=== PATIENT | female | born 1990 | race American Indian/Alaskan Native ===

== ENCOUNTER 2017-05-11 16:18 | Emergency (ER) | payer MEDICAID, OTHER ==
[2017-05-11 16:24] VITALS: BMI 24.0
[2017-05-11] MEDS ORDERED: Sodium Chloride 0.9% 1,000 ML IV STA (16:39)
[2017-05-11 16:43] VITALS: TEMP 98.5
--- NOTE | 2017-05-11 17:22 | ED PDOC ---
Arrival/HPI - General Chief Complaint: Abnormal Skin Integrity Time Seen by Provider: 05/11/17 16:31 Historian: Patient - History of Present Illness Narrative History of Present Illness (Text): 05/11/17 17:15 27yo female with PMHx of lupus biba for complaint of generalized bodyache since this morning. Notes history of recent cold symptoms symptoms. States the sore throat resolved, but still have mild cough. Reports history of similar bodyache with [id number] Lupus flare up. She did not take any medication for the pain. She denies fever, chills, abdominal pain, nausea, vomiting, diarrhea, chest pain, SOB, urinary symptoms. Also report a rash to her left sided neck. States she saw it when she woke up this morning and is spreading more. She denies nuchal ridgity, neck pain, any other complaint. Past Medical History - Provider Review Nursing Documentation Reviewed: Yes - Past History Past History: No Previous - Infectious Disease Hx of Infectious Diseases: None - Tetanus Immunization Tetanus Immunization: Unknown - Past Medical History Past Medical History: No Previous - Cardiac Hx Cardiac Disorders: No - Pulmonary Hx Respiratory Disorders: No - Neurological Hx Neurological Disorder: No - HEENT Hx HEENT Disorder: No - Renal Hx Renal Disorder: No - Endocrine/Metabolic Hx Endocrine Disorders: No - Hematological/Oncological Hx Blood Disorders: No - Integumentary Hx Dermatological Disorder: No - Musculoskeletal/Rheumatological Hx Musculoskeletal Disorders: No - Gastrointestinal Hx Gastrointestinal Disorders: Yes Hx Nausea: Yes Hx Vomiting: Yes Other/Comment: notes from previous triage: pt has had ongoing testing for abdominal problems. hysteroscopy/laparoscopy - Genitourinary/Gynecological Hx Genitourinary Disorders: No - Psychiatric Hx Psychophysiologic Disorder: No Hx Substance Use: No - Past Surgical History Past Surgical History: No Previous - Surgical History Other/Comment: Liver Resection. fibroids - Anesthesia Hx Anesthesia: Yes Hx Anesthesia Reactions: No Hx Malignant Hyperthermia: No - Suicidal Assessment Feels Threatened In Home Enviroment: No Family/Social History - Physician Review Nursing Documentation Reviewed: Yes Family/Social History: Unknown Family HX Smoking Status: Heavy Smoker > 10 Cigarettes Daily Hx Alcohol Use: Yes Frequency of alcohol use: Socially Hx Substance Use: No Hx Substance Use Treatment: No Allergies/Home Meds Allergies/Adverse Reactions: Allergies No Known Allergies Allergy (Verified 02/29/16 15:27) Home Medications: Home Meds Medication Instructions Recorded Confirmed Hydroxychloroquine Sulfate 200 mg PO DAILY 05/11/17 05/11/17 [Plaquenil] Prednisone [Deltasone] 40 mg PO DAILY 05/11/17 05/11/17 Review of Systems - Physician Review All systems were reviewed & negative as marked: Yes - Review of Systems Constitutional: Normal Eyes: Normal ENT: Normal Respiratory: Normal Cardiovascular: Normal Gastrointestinal: Normal Genitourinary Female: Normal Musculoskeletal: Myalgias Skin: Rash Neurological: Normal Endocrine: Normal Hemo/Lymphatic: Normal Psychiatric: Normal Physical Exam Vital Signs Reviewed: Yes Vital Signs Temp Pulse Resp BP Pulse Ox 05/11/17 19:23 72 18 100/55 L 99 05/11/17 16:18 98.5 F 92 H 16 131/82 100 Temperature: Afebrile Blood Pressure: Normal Pulse: Regular Respiratory Rate: Normal Appearance: Positive for: Well-Appearing, Non-Toxic, Comfortable Pain Distress: None Mental Status: Positive for: Alert and Oriented X 3 - Systems Exam Head: Present: Atraumatic, Normocephalic Pupils: Present: PERRL Extroacular Muscles: Present: EOMI Conjunctiva: Present: Normal Mouth: Present: Moist Mucous Membranes Neck: Present: Normal Range of Motion Respiratory/Chest: Present: Clear to Auscultation, Good Air Exchange. No: Respiratory Distress, Accessory Muscle Use Cardiovascular: Present: Regular Rate and Rhythm, Normal S1, S2. No: Murmurs Abdomen: Present: Normal Bowel Sounds. No: Tenderness, Distention, Peritoneal Signs Back: Present: Normal Inspection Upper Extremity: Present: Normal Inspection. No: Cyanosis, Edema Lower Extremity: Present: Normal Inspection. No: Edema Neurological: Present: GCS=15, CN II-XII Intact, Speech Normal Skin: Present: Warm, Dry, Rashes (Raised erytehamous patch noted on left sided shoulder/neck), Normal Color Psychiatric: Present: Alert, Oriented x 3, Normal Insight, Normal Concentration Medical Decision Making ED Course and Treatment: 05/11/17 19:46 PT in ED for states history. On revaluation she notes she feels much better. ESR of 25 was noted. She is on prednisone and plaquneil at home. she have a curb setter helper and a PMD and was advised to f/u. - Lab Interpretations Lab Results: 05/11/17 17:00 05/11/17 17:00 Lab Results 05/11/17 17:30: Grp A Beta Strep Ag Negative 05/11/17 17:30: Influenza Typ A,B (EIA) Negative for flu a/b 05/11/17 17:00: Sodium 145, Potassium 3.7, Chloride 105, Carbon Dioxide 29, Anion Gap 15, BUN 12, Creatinine 0.8, Est GFR ( Amer) > 60, Est GFR (Non- Af Amer) > 60, Random Glucose 94, Calcium 10.1, Total Bilirubin 0.7, AST 41 H, ALT 30, Alkaline Phosphatase 82, Total Protein 8.7 H, Albumin 4.9 H, Globulin 3.9, Albumin/Globulin Ratio 1.3 05/11/17 17:00: WBC 5.2, RBC 4.93, Hgb 14.7, Hct 45.5, MCV 92.3, MCH 29.8, MCHC 32.3, RDW 12.9, Plt Count 301, MPV 9.2, Gran % 43.7 L, Lymph % (Auto) 46.4 H, [place] % (Auto) 7.8 H, Eos % (Auto) 1.7, Baso % (Auto) 0.4, Gran # 2.29, Lymph # 2.4, [place] # 0.4, Eos # 0.1, Baso # 0.02, ESR 25 H 05/11/17 16:37: Urine Color Yellow, Urine Appearance Sl cloudy, Urine pH 6.5, Ur Specific [place] 1.020, Urine Protein 30 H, Urine Glucose (UA) Negative, Urine Ketones 15 H, Urine Blood Small H, Urine Nitrate Negative, Urine Bilirubin Moderate H, Urine Urobilinogen 1.0 H, Ur Leukocyte Esterase Trace H, Urine RBC 1 - 3, Urine WBC 2 - 5, Ur Epithelial Cells Many, Urine Bacteria Few - RAD Interpretation Radiology Orders: 05/11/17 18:30 CHEST PORTABLE [RAD] Stat - Medication Orders Current Medication Orders: Discontinued Medications Dexamethasone (Decadron Inj) 10 mg IVP STAT STA Stop: 05/11/17 17:18 Last Admin: 05/11/17 17:05 Dose: 10 mg IVP Administration Document 05/11/17 17:05 EQ (Rec: 05/11/17 17:28 EQ [id number]) Charges for Administration # of IVP Administrations 1 Sodium Chloride (Sodium Chloride 0.9%) 1,000 mls @ 999 mls/hr IV .Q1H1M STA Stop: 05/11/17 17:39 Last Admin: 05/11/17 17:05 Dose: 999 mls/hr eMAR Start Stop Document 05/11/17 17:05 EQ (Rec: 05/11/17 17:28 EQ [id number]) Intravenous Solution Start Date 05/11/17 Start Time 17:05 Ketorolac Tromethamine (Toradol) 30 mg IVP STAT STA Stop: 05/11/17 16:39 Last Admin: 05/11/17 17:05 Dose: 30 mg MAR Pain Assessment Document 05/11/17 17:05 EQ (Rec: 05/11/17 17:28 EQ [id number]) Pain Reassessment Is this a pain reassessment? No Sleep Is patient sleeping during reassessment? No Presence of Pain Presence of Pain Yes Pain Scale Used Pain Scale Used Numeric IVP Administration Document 05/11/17 17:05 EQ (Rec: 05/11/17 17:28 EQ [id number]) Charges for Administration # of IVP Administrations 1 Morphine Sulfate (Morphine) 2 mg IVP STAT STA Stop: 05/11/17 18:31 Last Admin: 05/11/17 18:46 Dose: 2 mg MAR Pain Assessment Document 05/11/17 18:46 EQ (Rec: 05/11/17 18:46 EQ [id number]) Pain Reassessment Is this a pain reassessment? No Sleep Is patient sleeping during reassessment? No Presence of Pain Presence of Pain Yes Pain Scale Used Pain Scale Used Numeric IVP Administration Document 05/11/17 18:46 EQ (Rec: 05/11/17 18:46 EQ [id number]) Charges for Administration # of IVP Administrations 1 Disposition/Present on Arrival - Present on Arrival Any Indicators Present on Arrival: No History of DVT/PE: No History of Uncontrolled Diabetes: No Urinary Catheter: No History of Decub. Ulcer: No History Surgical Site Infection Following: None - Disposition Have Diagnosis and Disposition been Completed?: Yes Diagnosis: Myalgia Disposition: HOME/ ROUTINE Disposition Time: 19:30 Patient Plan: Discharge Condition: STABLE Discharge Instructions (ExitCare): Musculoskeletal Pain (ED) Additional Instructions: Follow up with your Doctor Return to ED for any new or worsening symptoms Prescriptions: Famotidine [Pepcid] 20 mg PO DAILY #10 tab Referrals: Chema Jean MD [Primary Care Provider] - Follow up with primary Forms: [employer] (Hungarian), WORK NOTE
[2017-05-11 17:24] LABS: PH,URINE 6.5 (4.7-8.0); URINE BILIRUBIN MODERATE (NEGATIVE); URINE BLOOD SMALL (NEGATIVE); URINE GLUCOSE (UA) NEGATIVE (NEGATIVE); URINE LEUKOCYTE ESTERASE TRACE Leu/uL (NEGATIVE); URINE NITRATE NEGATIVE (NEGATIVE); URINE PROTEIN 30 mg/dL (<30 mg/dL)
[2017-05-11 17:25] LABS: URINE APPEARANCE SL CLOUDY (CLEAR); URINE COLOR YELLOW (YELLOW)
[2017-05-11 17:27] LABS: BASO # 0.02 K/mm3 (0.0-2.0); BASO % 0.4 % (0.0-3.0); EOS # 0.1 (0.0-0.7); EOS % 1.7 % (1.5-5.0); GRAN # 2.29 (1.4-6.5); GRAN % 43.7 % (50.0-68.0); HEMOGLOBIN 14.7 g/dL (12.0-16.0); LYMPH # 2.4 (1.2-3.4); LYMPH % 46.4 % (22.0-35.0); MEAN CELL VOLUME 92.3 fl (80.0-105.0); MEAN CORPUSCULAR HEMOGLOBIN 29.8 pg (25.0-35.0); MEAN CORPUSCULAR HGB CONC 32.3 g/dl (31.0-37.0); MEAN PLATELET VOLUME 9.2 fl (7.0-11.0); MONO # 0.4 (0.1-0.6); MONO % 7.8 % (1.0-6.0); RBC 4.93 10^6/uL (3.5-6.1); RED CELL DISTRIBUTION WIDTH 12.9 % (11.5-14.5); WHITE BLOOD COUNT 5.2 10^3/ul (4.5-11.0)
[2017-05-11 17:29] LABS: URINE BACTERIA FEW (NEG); URINE EPITHELIAL CELLS MANY /hpf (0-5)
[2017-05-11 17:33] LABS: ALBUMIN 4.9 g/dL (3.0-4.8); ALT/SGPT 30 U/L (7-56); AST/SGOT 41 U/L (14-36); BLOOD UREA NITROGEN 12 mg/dL (7-21); CALCIUM 10.1 mg/dL (8.4-10.5); GFR AFRICAN-AMERICAN > 60; GFR NON-AFRICAN AMERICAN > 60
[2017-05-11 17:38] LABS: ALB/GLOB RATIO 1.3 (1.1-1.8)
[2017-05-11] MEDS ORDERED: Morphine 2 mg/ml ISec IVP STA (18:30)
[2017-05-11 19:24] VITALS: BP 100/55; PULSE 72; RESP 18; O2SAT 99
--- NOTE | 2017-05-12 08:43 | RAD ---
HISTORY: cough COMPARISON: Comparison is made with 04/09/2023 FINDINGS: LUNGS: No active pulmonary disease. PLEURA: No significant pleural effusion identified, no pneumothorax apparent. CARDIOVASCULAR: Normal. OSSEOUS STRUCTURES: No significant abnormalities. VISUALIZED UPPER ABDOMEN: Normal. OTHER FINDINGS: None. IMPRESSION: No active disease.
== END 2017-05-11 19:44 | disposition home or self-care (01) ==
LOC: ED 16:18
DX: M79.1 Myalgia (principal)
CPT/HCPCS: 71045; 80053; 81001; 85025; 85651; 87070; 87086; 87430; 87804; 96374; 96375; 99283; J1100; J1885; J2270; J7040

== ENCOUNTER 2018-02-10 20:18 | Emergency (ER) | payer SELFPAY ==
[2018-02-10 20:20] VITALS: BMI 24.0
--- NOTE | 2018-02-10 20:58 | ED PDOC ---
Arrival/HPI <Gilbert Betancourt - Last Filed: 02/11/18 03:42> - General Historian: Patient - History of Present Illness Narrative History of Present Illness (Text): 02/10/18 20:57 Pt is a 28 yo F with pmhx of Lupus who presents for R sided abdominal pain. She states that she was resting when all of a sudden she noticed R sided abdominal pain that was a 10/10 and non-radiating. She states that she is familiar with this pain as it occurs when she has her periods but it has been a while since she last had an episode this acute. She denies being on her period currently but states that she should be getting it soon. She states that along with the pain she also had an episode of vomiting. She said she tried to take motrin but threw it up and then came to the ED. She denies to fevers, chills, sob, cough, chest pain, palpitations, dysuria or hematuria. In addition to the abd pain she also admits to continued nausea, vomiting, and constipation. She also denies being sexually active in the past 5 months and states that she has been having regular periods since her last sexual encounter with no dysuria or discharge. Pmhx: Lupus Pshx: Denies Meds: Hydroxychloroquine All: NKDA Social: 1/2ppd, social etoh no recent use, denies illicit drug use Fam: Dad- Lung ca Time/Duration: 1-3 hours Symptom Onset: Sudden Symptom Course: Improving Severity Level: 10 <Donny Mejia - Last Filed: 02/11/18 03:48> - General Chief Complaint: Abdominal Pain Time Seen by Provider: 02/10/18 20:21 Past Medical History - Provider Review Nursing Documentation Reviewed: Yes - Past History Past History: No Previous - Infectious Disease Hx of Infectious Diseases: None - Tetanus Immunization Tetanus Immunization: Unknown - Past Medical History Past Medical History: No Previous - Cardiac Hx Cardiac Disorders: No - Pulmonary Hx Respiratory Disorders: No - Neurological Hx Neurological Disorder: No - HEENT Hx HEENT Disorder: No - Renal Hx Renal Disorder: No - Endocrine/Metabolic Hx Endocrine Disorders: No - Hematological/Oncological Hx Blood Disorders: No - Integumentary Hx Dermatological Disorder: No - Musculoskeletal/Rheumatological Hx Musculoskeletal Disorders: No - Gastrointestinal Hx Gastrointestinal Disorders: Yes Hx Nausea: Yes Hx Vomiting: Yes Other/Comment: notes from previous triage: pt has had ongoing testing for abdominal problems. hysteroscopy/laparoscopy - Genitourinary/Gynecological Hx Genitourinary Disorders: No - Psychiatric Hx Psychophysiologic Disorder: No Hx Substance Use: No - Past Surgical History Past Surgical History: No Previous - Surgical History Other/Comment: Liver Resection. fibroids - Anesthesia Hx Anesthesia: Yes Hx Anesthesia Reactions: No Hx Malignant Hyperthermia: No - Suicidal Assessment Feels Threatened In Home Enviroment: No <Donny Mejia - Last Filed: 02/11/18 03:48> Family/Social History - Physician Review Nursing Documentation Reviewed: Yes Family/Social History: No Known Family HX Smoking Status: Heavy Smoker > 10 Cigarettes Daily Hx Alcohol Use: Yes Hx Substance Use: No Hx Substance Use Treatment: No <Donny Mejia - Last Filed: 02/11/18 03:48> Allergies/Home Meds <Gilbert Betancourt - Last Filed: 02/11/18 03:42> <Donny Mejia - Last Filed: 02/11/18 03:48> Allergies/Adverse Reactions: Allergies No Known Allergies Allergy (Verified 05/14/17 21:48) Home Medications: Home Meds Medication Instructions Recorded Confirmed Hydroxychloroquine Sulfate 200 mg PO DAILY 05/11/17 02/10/18 [Plaquenil] Prednisone [Deltasone] 40 mg PO DAILY 05/11/17 02/10/18 Review of Systems - Physician Review All systems were reviewed & negative as marked: Yes - Review of Systems Constitutional: absent: Fevers Gastrointestinal: Abdominal Pain, Nausea, Vomiting Genitourinary Female: absent: Dysuria, Hematuria <Donny Mejia - Last Filed: 02/11/18 03:48> Physical Exam Vital Signs Temp Pulse Resp BP Pulse Ox 02/10/18 20:56 98.5 F 82 18 114/71 99 Temperature: Afebrile Blood Pressure: Normal Pulse: Regular Respiratory Rate: Normal Appearance: Positive for: Well-Appearing, Non-Toxic, Comfortable Pain Distress: None Mental Status: Positive for: Alert and Oriented X 3 <Gilbert Betancourt - Last Filed: 02/11/18 03:42> Vital Signs Reviewed: Yes - Systems Exam Head: Present: Atraumatic, Normocephalic Pupils: Present: PERRL Extroacular Muscles: Present: EOMI Respiratory/Chest: Present: Clear to Auscultation, Good Air Exchange. No: Respiratory Distress, Accessory Muscle Use, Wheezes, Rales, Rhonchi Cardiovascular: Present: Regular Rate and Rhythm, Normal S1, S2. No: Murmurs, Rub, Gallop Abdomen: Present: Normal Bowel Sounds. No: Tenderness (states that deep palpation actually improves the pain), Distention, Peritoneal Signs, Rebound, Guarding, McBurney's Point Tender, Rovsing's Sign Present Back: Present: Normal Inspection. No: CVA Tenderness Lower Extremity: Present: Normal Inspection. No: Edema, CALF TENDERNESS, Leo's Sign Neurological: Present: GCS=15, Speech Normal Skin: Present: Warm, Dry, Normal Color. No: Rashes Psychiatric: Present: Alert, Oriented x 3, Normal Insight, Normal Concentration <Donny Mejia - Last Filed: 02/11/18 03:48> Medical Decision Making ED Course and Treatment: Patient Seen with Resident: In agreement with resident note which contains more details about the patient. Patient seen and evaluated with resident. Came up with plan and treatment together. 28 year old female presents complaining of sudden right sided abdominal pain associated with nausea, vomiting, and constipation. Plan: -- CT Abdomen & Pelvis -- Labs -- Morphine, Toradol, Zofran Inj -- POC Urine Test -- Urinalysis - Lab Interpretations Lab Results: 02/10/18 20:55 02/10/18 20:55 Lab Results 02/10/18 20:55: Sodium 139, Potassium 3.5 L, Chloride 106, Carbon Dioxide 26, Anion Gap 11, BUN 7, Creatinine 0.6 L, Est GFR ( Amer) > 60, Est GFR (Non-Af Amer) > 60, Random Glucose 94, Calcium 9.4, Magnesium 1.8, Total Bilirub in 0.4, AST 39 H, ALT 20, Alkaline Phosphatase 68, Total Protein 6.8, Albumin 3.9, Globulin 3.0, Albumin/Globulin Ratio 1.3, Lipase 74 02/10/18 20:55: Urine Color Yellow, Urine Appearance Clear, Urine pH >=9.0, Ur Specific [place] 1.015, Urine Protein Negative, Urine Glucose (UA) Negative, Urine Ketones Negative, Urine Blood Negative, Urine Nitrate Negative, Urine Bilirubin Negative, Urine Urobilinogen 1.0 H, Ur Leukocyte Esterase Negative 02/10/18 20:55: WBC 7.8 D, RBC 4.26, Hgb 11.6 L D, Hct 35.9 L, MCV 84.3 D, MCH 27.2, MCHC 32.3, RDW 13.3, Plt Count 370, MPV 8.6, Gran % 65.2, Lymph % (Auto) 27.3, [place] % (Auto) 6.6 H, Eos % (Auto) 0.6 L, Baso % (Auto) 0.3, Gran # 5.11, Lymph # (Auto) 2.1, [place] # (Auto) 0.5, Eos # (Auto) 0.1, Baso # (Auto) 0.02 I have reviewed the lab results: Yes - RAD Interpretation Radiology Orders: 02/10/18 20:54 ABDOMEN & PELVIS [ABD & PELVIS W/O PO OR IV CONT] [CT] Stat - Medication Orders Current Medication Orders: Discontinued Medications Ketorolac Tromethamine (Toradol) 30 mg IVP STAT STA Stop: 02/10/18 20:59 Last Admin: 02/10/18 21:16 Dose: 30 mg MAR Pain Assessment Document 02/10/18 21:16 JOL (Rec: 02/10/18 21:16 [facility] [id number]) Pain Reassessment Is this a pain reassessment? No Sleep Is patient sleeping during reassessment? No Presence of Pain Presence of Pain Yes Pain Scale Used Protocol: PSCALES Pain Scale Used Numeric Location Left, Right or Bilateral Right Upper or Lower Lower Pain Location Body Site Abdomen Description Intensity of Pain at present 9 IVP Administration Document 02/10/18 21:16 JOL (Rec: 02/10/18 21:16 JO [id number]) Charges for Administration # of IVP Administrations 1 Morphine Sulfate (Morphine) 4 mg IVP STAT STA Stop: 02/10/18 21:40 Ondansetron HCl (Zofran Inj) 4 mg IVP STAT STA Stop: 02/10/18 20:59 Last Admin: 02/10/18 21:15 Dose: 4 mg IVP Administration Document 02/10/18 21:15 JOL (Rec: 02/10/18 21:16 JO [id number]) Charges for Administration # of IVP Administrations 1 <Gilbert Betancourt - Last Filed: 02/11/18 03:42> ED Course and Treatment: 02/10/18 21:13 Pt is a 28 yo F with pmhx detailed above who presents for R abdominal pain that is non-radiating. - CBC - CMP - UA - Urine - CT abd & pelvis w/o contrast - Zofran 4mg - Toradol 30 IV 02/11/18 03:47 Pt is feeling better, and states that she would like to be discharged. - RAD Interpretation Narrative RAD Interpretations (Text): 02/11/18 03:13 Impression: S/p partial resection of L hepatic lobe. Otherwise unremarkable liver. No acute pathology Radiology Orders: 02/10/18 20:54 ABDOMEN & PELVIS [ABD & PELVIS W/O PO OR IV CONT] [CT] Stat <Donny Mejia - Last Filed: 02/11/18 03:48> - PA / HEAD NECK SURGEON / Resident Statement MD/ has reviewed & agrees with the documentation as recorded. MD/ has examined the patient and agrees with the treatment plan. - Scribe Statement The provider has reviewed the documentation as recorded by the Hemalatha Springer Provider Scribe Attestation: All medical record entries made by the Scribe were at my direction and personally dictated by me. I have reviewed the chart and agree that the record a ccurately reflects my personal performance of the history, physical exam, medical decision making, and the department course for this patient. I have also personally directed, reviewed, and agree with the discharge instructions and disposition. <Gilbert Betancourt - Last Filed: 02/11/18 03:42> Disposition/Present on Arrival <Gilbert Betancourt - Last Filed: 02/11/18 03:42> - Present on Arrival Any Indicators Present on Arrival: No History of DVT/PE: No History of Uncontrolled Diabetes: No Urinary Catheter: No History Surgical Site Infection Following: None - Disposition Have Diagnosis and Disposition been Completed?: Yes Disposition Time: 03:36 Patient Plan: Discharge <Donny Mejia - Last Filed: 02/11/18 03:48> - Disposition Diagnosis: Abdominal pain Disposition: HOME/ ROUTINE Patient Problems: Current Active Problems Problem Status Onset Abdominal pain Acute Condition: GOOD Additional Instructions: - Please follow up with your primary care doctor within the week - If any recurrent worsening symptoms, or if new symptoms begin please return to emergency department Prescriptions: Naproxen [Naprosyn] 500 mg PO BID PRN #14 tab PRN Reason: Pain Referrals: Mabel Ochoa MD [Primary Care Provider] - Follow up with primary Forms: [employer] (Dutch)
[2018-02-10 21:34] VITALS: TEMP 98.5
[2018-02-10] MEDS ORDERED: Morphine 4 mg/ml ISec IVP STA (21:39)
[2018-02-10 21:48] LABS: PH,URINE >=9.0 (4.7-8.0); URINE BILIRUBIN NEGATIVE (NEGATIVE); URINE BLOOD NEGATIVE (NEGATIVE); URINE COLOR YELLOW (YELLOW); URINE GLUCOSE (UA) NEGATIVE (NEGATIVE); URINE LEUKOCYTE ESTERASE NEGATIVE Leu/uL (NEGATIVE); URINE PROTEIN NEGATIVE mg/dL (<30 mg/dL)
[2018-02-10 21:49] LABS: BASO # 0.02 K/mm3 (0.0-2.0); BASO % 0.3 % (0.0-3.0); EOS # 0.1 (0.0-0.7); EOS % 0.6 % (1.5-5.0); GRAN # 5.11 (1.4-6.5); GRAN % 65.2 % (50.0-68.0); HEMOGLOBIN 11.6 g/dL (12.0-16.0); LYMPH # 2.1 (1.2-3.4); LYMPH % 27.3 % (22.0-35.0); MEAN CELL VOLUME 84.3 fl (80.0-105.0); MEAN CORPUSCULAR HEMOGLOBIN 27.2 pg (25.0-35.0); MEAN CORPUSCULAR HGB CONC 32.3 g/dl (31.0-37.0); MEAN PLATELET VOLUME 8.6 fl (7.0-11.0); MONO # 0.5 (0.1-0.6); MONO % 6.6 % (1.0-6.0); RBC 4.26 10^6/uL (3.5-6.1); RED CELL DISTRIBUTION WIDTH 13.3 % (11.5-14.5); URINE APPEARANCE CLEAR (CLEAR); WHITE BLOOD COUNT 7.8 10^3/ul (4.5-11.0)
[2018-02-10 21:53] LABS: ALB/GLOB RATIO 1.3 (1.1-1.8); ALBUMIN 3.9 g/dL (3.0-4.8); ALT/SGPT 20 U/L (7-56); AST/SGOT 39 U/L (14-36); BLOOD UREA NITROGEN 7 mg/dL (7-21); CALCIUM 9.4 mg/dL (8.4-10.5); GFR NON-AFRICAN AMERICAN > 60; LIPASE 74 U/L (23-300)
[2018-02-11] MEDS ORDERED: Morphine 2 mg/ml ISec IVP STA (01:52)
[2018-02-11] MEDS ORDERED: Morphine 2 mg/ml ISec ONE (01:54)
[2018-02-11 04:12] VITALS: BP 118/74; PULSE 88; RESP 16; O2SAT 100
--- NOTE | 2018-02-11 15:27 | CT ---
Date of service: 02/11/2018 PROCEDURE: CT Abdomen and Pelvis without intravenous contrast HISTORY: R sided abd pain COMPARISON: None. TECHNIQUE: Without contrast.. Contrast dose: Radiation dose: Total exam DLP = 440 mGy-cm. This CT exam was performed using one or more of the following dose reduction techniques: Automated exposure control, adjustment of the mA and/or kV according to patient size, and/or use of iterative reconstruction technique. FINDINGS: LOWER THORAX: Unremarkable. LIVER: There is a suture line in the liver from previous resection of the left lobe. The liver is otherwise unremarkable GALLBLADDER AND BILE DUCTS: Unremarkable. PANCREAS: Unremarkable. No gross lesion or ductal dilatation. SPLEEN: Unremarkable. ADRENALS: Unremarkable. No mass. KIDNEYS AND URETERS: Unremarkable. No hydronephrosis. No solid mass. VASCULATURE: Unremarkable. No aortic aneurysm. BOWEL: Unremarkable. No obstruction. No gross mural thickening. APPENDIX: Unremarkable. Normal appendix. PERITONEUM: Unremarkable. No free fluid. No free air. LYMPH NODES: Unremarkable. No enlarged lymph nodes. BLADDER: Unremarkable. REPRODUCTIVE: Unremarkable. BONES: No acute fracture. OTHER FINDINGS: The report concurs with the preliminary [facility] report IMPRESSION: No acute intra-abdominal findings
== END 2018-02-11 04:00 | disposition home or self-care (01) ==
LOC: ED 20:18
DX: R10.9 Unspecified abdominal pain (principal); F17.210 Nicotine dependence, cigarettes, uncomplicated
CPT/HCPCS: 74176; 80053; 81003; 83690; 83735; 85025; 96374; 96375; 96376; 99283; J1885; J2270; J2405